=== PATIENT | female | born 1935 | race Caucasian/White ===

== ENCOUNTER 2018-04-10 03:20 | Observation (INO) | payer OTHER ==
[2018-04-10] MEDS ORDERED: LABETALOL 20 MG/4ML SYRINGE IV ONE (03:39)
[2018-04-10 03:53] LABS: Absolute Lymphocytes (CBC) 2.5 K/uL (0.7-4.9); Absolute Monocytes 1.1 K/uL (0.1-1.3); Absolute Neutrophil 13.9 K/uL (1.8-8.0); Basophils % 0.2 % (0-1.3); Hematocrit 41.8 % (36.0-45.0); MCH 29.8 pg (27.0-35.0); MCV 90.2 fL (80-100); Monocytes % 6.1 % (3.3-12.3); RBC Red Blood Cell Count 4.63 M/uL (3.86-4.86)
[2018-04-10 04:00] LABS: Protime INR 0.97
[2018-04-10 04:21] LABS: Albumin 3.6 g/dL (3.4-5.0); Bilirubin Direct 0.1 mg/dL (0-0.2); Bilirubin Total 0.3 mg/dL (0.2-1.0); Digoxin Level 0.5 ng/mL (0.80-2.00); Magnesium 2.1 mg/dL (1.8-2.4); Thyroid Stimulating Hormone 3.1 uIU/mL (0.36-3.74)
[2018-04-10] MEDS ORDERED: ALBUTEROL 2.5 MG/3 ML NEB SOL ONE (04:41)
--- NOTE | 2018-04-10 05:25 | ER ---
Nurse's Notes [facility] Name: Nora Ames Age: 82 yrs Sex: Female : 1935 Arrival Date: 04/10/2018 Time: 03:27 Bed 5 Private MD: Diagnosis: Precordial pain;Unspecified atrial flutter Presentation: 04/10 03:22 Presenting complaint: Patient states: Pt states that she was sitting reading a book, fc then started to have a headache. It went down into her neck then to her chest. Denies any nausea, vomiting or shortness of breath. Transition of care: patient was not received from another setting of care. Onset of symptoms was April 09, 2018 at 23:00. Risk Assessment: Do you want to hurt yourself or someone else? Patient reports no desire to harm self or others. Initial Sepsis Screen: Does the patient meet any 2 criteria? HR > 90 bpm. Yes Does the patient have a suspected source of infection? No. Patient's initial sepsis screen is negative. Care prior to arrival: Medication(s) given: ASA, 81 mg, x 4. 03:22 Acuity: ALDO 3 fc 03:22 Method Of Arrival: EMS: [facility] Historical: - Allergies: 03:35 Sulfa (Sulfonamide Antibiotics); fc - Home Meds: 03:40 digoxin 125 mcg oral tab 1 tab once daily [Active]; Protonix 40 mg Oral grps 1 packet fc once daily [Active]; metoprolol tartrate 25 mg Oral tab 1 tab am and noon [Active]; aspirin 81 mg Oral TbEC 1 tab once daily [Active]; simvastatin 20 mg Oral tab 1 tab nightly [Active]; montelukast 10 mg oral tab 1 tab nightly [Active]; Spiriva Respimat 1.25 mcg/actuation inhalation mist nightly [Active]; ProAir HFA 90 mcg/actuation inhalation HFAA 2 puffs as needed [Active]; - PMHx: 03:35 Asthma; CAD; Atrial Fib; Cancer, Breast; [employer]; Hypertension; fc 03:40 High Cholesterol; GERD; fc - PSHx: 03:35 left mastectomy; Appendectomy; Tonsillectomy; Hysterectomy; Lumpectomy; bladder lift; fc - Immunization history:: Last tetanus immunization: unknown. - Social history:: Smoking status: Patient/guardian denies using tobacco. - Ebola Screening: : Patient negative for fever greater than or equal to 101.5 degrees Fahrenheit, and additional compatible Ebola Virus Disease symptoms Patient denies exposure to infectious person Patient denies travel to an Ebola-affected area in the 21 days before illness onset. Screenin:22 Abuse screen: Denies threats or abuse. Nutritional screening: No deficits noted. fc Tuberculosis screening: No symptoms or risk factors identified. Fall Risk None identified. Assessment: 03:30 General: Appears in no apparent distress. Behavior is appropriate for age. Pain: lp1 Complains of pain in chest Pain does not radiate. Pain currently is 6 out of 10 on a pain scale. Pain began gradually, Is intermittent. Neuro: Level of Consciousness is awake, alert, obeys commands, Oriented to person, place, time, situation. Cardiovascular: Reports chest pain, palpitations, Patient's skin is warm and dry. Rhythm is sinus tachycardia. Respiratory: Respiratory effort is even, unlabored, Breath sounds are clear bilaterally. GI: No signs and/or symptoms were reported involving the gastrointestinal system. : No signs and/or symptoms were reported regarding the genitourinary system. EENT: No signs and/or symptoms were reported regarding the EENT system. Derm: Skin is fragile, is thin, Skin is dry, Skin is normal. Musculoskeletal: Circulation, motion, and sensation intact. 04:23 Reassessment: Patient appears in no apparent distress at this time. Patient and/or tl2 family updated on plan of care and expected duration. Pain level reassessed. Patient is alert, oriented x 3, equal unlabored respirations, skin warm/dry/pink. 05:30 Reassessment: Patient appears in no apparent distress at this time. Patient is alert, lp1 oriented x 3, equal unlabored respirations, skin warm/dry/pink. Aware of pending admission. 07:20 Reassessment: spoke with 4th floor, awaiting a call back from Narda WILLS at this time. Vital Signs: 03:22 BP 177 / 103; Pulse 128; Resp 20; Temp 98.5(O); Pulse Ox 95% on R/A; Weight 57.61 kg fc (R); Height 5 ft. 3 in. (160.02 cm) (R); Pain 2/10; 03:30 BP 154 / 95; Pulse 130; Resp 13; Pulse Ox 98% on R/A; lp1 04:00 BP 143 / 83; Pulse 126; Resp 19; Pulse Ox 95% on R/A; lp1 04:23 BP 141 / 76; Pulse 129; Resp 20; Pulse Ox 95% on R/A; tl2 05:04 BP 151 / 82; Pulse 135; Resp 21; Pulse Ox 99% on Nebulizer Mask; tl2 06:00 BP 132 / 67; Pulse 133; Resp 18; Pulse Ox 96% on R/A; lp1 06:20 BP 144 / 75; Pulse 136; Resp 20; Pulse Ox 95% on R/A; lp1 07:00 BP 131 / 69; Pulse 131; Resp 24; Pulse Ox 96% on R/A; sg 07:27 BP 129 / 65; Pulse 132 MON; Resp 18 S; Pulse Ox 98% on R/A; sg 03:22 Body Mass Index 22.50 (57.61 kg, 160.02 cm) fc ED Course: 03:22 Arm band placed on Patient placed in an exam room, on a stretcher. fc 03:22 Patient has correct armband on for positive identification. Placed in gown. Bed in low fc position. Call light in reach. Side rails up X2. child monitor on. Pulse ox on. NIBP on. 03:27 Patient arrived in ED. fc 03:28 Maintain EMS IV. Dressing intact. Good blood return noted. Site clean \T\ dry. Gauge \T\ tl 2 site: 20 g R AC. 03:29 Sam Lee MD is Attending Physician. gs 03:32 Triage completed. fc 03:41 X-ray completed. Portable x-ray completed in exam room. Patient tolerated procedure kp1 well. 03:42 Zoila Hernandez, ELMA is Primary Nurse. lp1 03:45 Patient maintains SpO2 saturation greater than 95% on room air. lp1 03:46 XRAY Chest (1 view) In Process Unspecified. EDMS 04:[address] via wheelchair. lp1 04:46 CT completed. Patient tolerated procedure well. Patient moved back from CT. kw1 04:56 CT Chest Wo Con In Process Unspecified. EDMS 05:23 Randee Brewer MD is Hospitalizing Provider. gs 06:[address] via wheelchair. kw1 06:18 No provider procedures requiring assistance completed. Patient admitted, IV remains in lp1 place. 06:19 CT completed. Patient tolerated procedure well. Patient moved back from CT. kw1 07:05 Primary Nurse role handed off by Zoila Hernandez, ELMA 07:05 Harlan Girard, RN is Primary Nurse. sg Administered Medications: 03:42 Drug: Labetalol 10 mg Route: IVP; Infused Over: 2 mins; Site: right antecubital; lp1 04:33 Follow up: Response: Blood pressure is lowered lp1 05:06 Drug: Albuterol 2.5 mg Route: Inhalation; tl2 05:30 Drug: Digoxin 0.25 mg Route: IVP; Site: right antecubital; tl2 06:52 Follow up: Response: No adverse reaction lp1 07:50 Drug: Metoprolol 25 mg Route: PO; sg Outcome: 05:24 Decision to Hospitalize by Provider. 06:18 Condition: stable lp1 06:18 Instructed on the need for admit. 08:38 Patient left the ED. hb Signatures: Dispatcher [employer] EDMS Harlan Girard, ELMA WILLS Yesy Weiss RN ELMA Zoila Hernandez RN RN 1 Nai Murillo RN RN Luciana Rosenberg RN RN 2 Radhika Rowe 1 Sam Lee MD MD Shanta Payan kw1 Corrections: (The following items were deleted from the chart) 03:40 03:35 Home Meds: Digoxin Oral once daily; [facility] 03:40 03:35 Home Meds: Spiriva with HandiHaler 18 mcg inhalation CpDv 1 cap once daily; [facility] 04:08 04:00 BP 143 / 83; Pulse 130bpm; Resp 19bpm; Pulse Ox 95% RA; lp1 lp1
[2018-04-10] MEDS ORDERED: DIGOXIN 0.25 MG/ML AMP ONE (05:31)
--- NOTE | 2018-04-10 05:51 | P.HP ---
Certification for Inpatient Patient admitted to: Observation With expected LOS: <2 Midnights Practitioner: I am a practitioner with admitting privileges, knowledge of patient current condition, hospital course, and medical plan of care. Services: Services provided to patient in accordance with Admission requirements found in Title 42 Section 412.3 of the Code of Federal Regulations Patient History Date of Service: 04/10/18 Reason for admission: chest pain History of Present Illness: Ms Ames is a 89-year-old woman with history of hypertension, atrial fibrillation, asthma, GERD, who recently moved from [place]. She states that before go to sleep last night, while she was reading a book, started feeling suddenly severe headache. Then, her pain radiated to the neck and finally to the chest. She described a tightness sensation in her chest, having trouble breathing, it was hard to inhale but not to exhale. Intensity 5/10. She denied any nausea, vomiting, fever, chills or dizziness. She took her blood pressure at home, it was 130s/70s. Lab work remarkable for leukocytosis, 17.6 K. She denied cough or dysuria. EKG remarkable for atrial flutter at 140s BPM, formal interpretation are cut and print machine operator is pending. Troponin I is negative. Allergies Sulfa (Sulfonamide Antibiotics) Allergy (Verified 04/10/18 05:44) Itching/Hives/Rash Home medications list reviewed: Yes - Past Medical/Surgical History -: Atrial fibrillation -: Hypertension -: Asthma -: Breast cancer -: Dyslipidemia -: GERD -: Mastectomy -: Tonsillectomy -: Appendectomy -: Hysterectomy -: Lumpectomy -: Bladder Lift - Family History Family History: Reviewed- Non-Contributory - Social History Smoking Status: Former smoker Alcohol use: No CD- Drugs: No Place of Residence: Home Review of Systems 10-point ROS is otherwise unremarkable Physical Examination - Physical Exam General: Alert, In no apparent distress HEENT: Atraumatic, PERRLA, Mucous membr. moist/pink, EOMI, Sclerae nonicteric Neck: Supple, 2+ carotid pulse no bruit, No LAD, Without JVD or thyroid abnormality Respiratory: Normal air movement, Crackles/rales (My bibasilar rales) Cardiovascular: Regular rate/rhythm, Normal S1 S2 Gastrointestinal: Normal bowel sounds, No tenderness Musculoskeletal: No tenderness Integumentary: No rashes Neurological: Normal speech, Normal strength at 5/5 x4 extr, Normal tone, Normal affect Lymphatics: No axilla or inguinal lymphadenopathy - Studies Laboratory Data (last 24 hrs) 04/10/18 03:35: PT 11.4, INR 0.97 04/10/18 03:35: WBC 17.6 H, Hgb 13.8, Hct 41.8, Plt Count 236 04/10/18 03:35: Sodium 139, Potassium 4.0, BUN 9, Creatinine 0.90, Glucose 101, Magnesium 2.1, Total Bilirubin 0.3, AST 18, ALT 21, Alkaline Phosphatase 83 Assessment and Plan - Problems (Diagnosis) (1) Headache Current Visit: Yes Status: Acute Qualifiers: Headache type: unspecified Headache chronicity pattern: acute headache Intractability: not intractable Qualified Code(s): R51 - Headache (2) Chest pain Current Visit: Yes Status: Acute Qualifiers: Chest pain type: precordial pain Qualified Code(s): R07.2 - Precordial pain (3) Atrial flutter Current Visit: Yes Status: Acute Qualifiers: Atrial flutter type: typical Qualified Code(s): I48.3 - Typical atrial flutter (4) Hypertension Current Visit: Yes Status: Acute Qualifiers: Hypertension type: essential hypertension Qualified Code(s): I10 - Essential (primary) hypertension (5) Asthma Current Visit: Yes Status: Acute Qualifiers: Asthma severity: mild Asthma persistence: intermittent Asthma complication type: uncomplicated Qualified Code(s): J45.20 - Mild intermittent asthma, uncomplicated (6) Dyslipidemia Current Visit: Yes Status: Acute - Plan The patient will be admitted to the hospital due to chest pain, in context of atrial flutter with RVR without ST-T abnormalities. Initial troponin I is negative, would continue with serial cardiac enzyme monitoring, and EKG. Will order an echocardiogram, consult cut and print machine operator. Will order IV Lasix since she has mild bibasilar rales at physical exam. Digoxin level was low. Will resume metoprolol, aspirin and simvastatin. She is not on any anticoagulation, she is states that bleed very ease, however, needs to be addressed before discharge home. Headache is improving, pending CT of the head. She has leukocytosis without obvious source of infection, no fever, pending UA. - Advance Directives Does patient have a Living Will: No Does patient have a Durable POA for Healthcare: No - Code Status/Comfort Care Code Status Assessed: Yes Code Status: Full Code
--- NOTE | 2018-04-10 06:09 | EKG ---
Test Date: 2018-04-10 Test Time: 03:23:25 [place] [employer] Quality Control Technician: SILVIA MEASUREMENT RESULTS: Intervals: Rate: 125 MN: 224 QRSD: 74 QT: 318 QTc: 458 [place]: P: MN: 224 QRS: 7 T: 19 INTERPRETIVE STATEMENTS: Sinus tachycardia with 1st degree AV block Otherwise normal ECG No previous ECG available for comparison Electronically Signed On 04-10-18 06:08:43 CDT by Darryl Bradshaw
--- NOTE | 2018-04-10 07:20 | RAD REPORT ---
EXAM DESCRIPTION: CT - Head Brain Wo Cont - 04/10/2018 7:05 am CLINICAL HISTORY: Severe headache A preliminary written report was provided at the time of the study, and the report was reviewed prio r to final dictation. COMPARISON: None. TECHNIQUE: Axial 5 mm thick images of the head were obtained without IV contrast. All CT scans are performed using dose optimization technique as appropriate and may include automated exposure control or mA/KV adjustment according to patient size. FINDINGS: No intracranial hemorrhage, mass, edema or shift of mid-line structures. No acute infarcti on changes seen. No abnormal extra-axial fluid collections. Mild atrophy and chronic ischemic changes are present. Ventricular size is in proportion. Mastoid air cells and visualized portions of the paranasal sinuses are clear. No acute bony findings. IMPRESSION: Negative non-contrast CT head examination for acute finding. Mild atrophy and chronic ischemic changes are present. Ventricular size is in proportion.
[2018-04-10] MEDS ORDERED: METOPROLOL TAR 25 MG TAB ONE (07:49)
--- NOTE | 2018-04-10 08:31 | P.PN ---
Subjective Date of Service: 04/10/18 Primary Care Provider: Recently moved from [place] Chief Complaint: chest pain Subjective: Improving (Patient feels better. Somewhat tired.) Physical Examination - Physical Exam General: Alert, In no apparent distress, Oriented x3, Cooperative HEENT: Atraumatic Neck: Supple Respiratory: Clear to auscultation bilaterally, Normal air movement Cardiovascular: Irregular heart rate/rhythm (Sinus tachycardia, rate around 120- 130) Gastrointestinal: Normal bowel sounds, Soft and benign, Non-distended, No tenderness, No masses, No rebound, No guarding Musculoskeletal: No erythema, No tenderness, No warmth Integumentary: No tenderness/swelling, No erythema, No warmth, No cyanosis Neurological: Normal speech, Normal strength at 5/5 x4 extr, Normal tone, Normal affect - Studies Laboratory Data (last 24 hrs) 04/10/18 03:35: PT 11.4, INR 0.97 04/10/18 03:35: WBC 17.6 H, Hgb 13.8, Hct 41.8, Plt Count 236 04/10/18 03:35: Sodium 139, Potassium 4.0, BUN 9, Creatinine 0.90, Glucose 101, Magnesium 2.1, Total Bilirubin 0.3, AST 18, ALT 21, Alkaline Phosphatase 83 Medications List Reviewed: Yes Assessment & Plan - Problems (Diagnosis) (1) Asthma Current Visit: Yes Status: Chronic Plan: Patient with history of asthma. Will start Brovana. Will provide medication as needed for shortness of breath. Patient is new to the area. She will need to establish care with pulmonology in the area as an outpatient. Qualifiers: Asthma severity: mild Asthma persistence: intermittent Asthma complication type: uncomplicated Qualified Code(s): J45.20 - Mild intermittent asthma, uncomplicated (2) Atrial flutter Current Visit: Yes Status: Acute Plan: Patient presented with atrial flutter rate in the 150s. Patient appears to be in sinus tachycardia at this time with a rate around 120-130. Digoxin level was low. Will continue with her metoprolol and digoxin. Echocardiogram ordered. Await further recommendations from cardiology. Will start Lovenox at 1 milligram/kilogram subcu twice daily. Patient may require adjustment in her medication. Will continue monitor on telemetry. Qualifiers: Atrial flutter type: typical Qualified Code(s): I48.3 - Typical atrial flutter (3) Chest pain Current Visit: Yes Status: Acute Plan: Initial cardiac enzymes unremarkable. Will continue with echocardiogram. Patient may require cardiac evaluation. Cardiology consulted. Qualifiers: Chest pain type: precordial pain Qualified Code(s): R07.2 - Precordial pain (4) Dyslipidemia Current Visit: Yes Status: Chronic Plan: Will check fasting lipid panel, will continue with her medication. (5) Headache Current Visit: Yes Status: Acute Plan: Likely from atrial flutter. This has improved. Continue with blood pressure medication. Qualifiers: Headache type: unspecified Headache chronicity pattern: acute headache Intractability: not intractable Qualified Code(s): R51 - Headache (6) Hypertension Current Visit: Yes Status: Chronic Plan: Will continue with her medication. Medication may need adjustment. Await cardiology evaluation. Qualifiers: Hypertension type: essential hypertension Qualified Code(s): I10 - Essential (primary) hypertension Discharge Plan: Home Plan to discharge in: 48 Hours Time Spent Managing Pts Care (In Minutes): 55
--- NOTE | 2018-04-10 08:39 | EDPHYS ---
Physician Documentation [facility] Name: Nora Ames Age: 82 yrs Sex: Female : 1935 Arrival Date: 04/10/2018 Time: 03:27 Bed 5 Private MD: ED Physician Sam Lee HPI: 04/10 05:18 This 82 yrs old Female presents to ER via EMS with complaints of Chest Pain. 05:18 The patient or guardian reports chest pain that is located primarily in the anterior gs chest wall. Onset: 1 hour(s) ago. The pain radiates to neck. Associated signs and symptoms: Pertinent positives: palpitations, shortness of breath. The chest pain is described as a heaviness, sharp. Duration: The patient or guardian reports a single episode, that is now resolved. Modifying factors: The symptoms are alleviated by nothing. the symptoms are aggravated by nothing. Severity of pain: At its worst the pain was severe in the emergency department the pain has resolved. The patient has experienced similar episodes in the past, a few times. Historical: - Allergies: 03:35 Sulfa (Sulfonamide Antibiotics); fc - Home Meds: 03:40 digoxin 125 mcg oral tab 1 tab once daily [Active]; Protonix 40 mg Oral grps 1 packet fc once daily [Active]; metoprolol tartrate 25 mg Oral tab 1 tab am and noon [Active]; aspirin 81 mg Oral TbEC 1 tab once daily [Active]; simvastatin 20 mg Oral tab 1 tab nightly [Active]; montelukast 10 mg oral tab 1 tab nightly [Active]; Spiriva Respimat 1.25 mcg/actuation inhalation mist nightly [Active]; ProAir HFA 90 mcg/actuation inhalation HFAA 2 puffs as needed [Active]; - PMHx: 03:35 Asthma; CAD; Atrial Fib; Cancer, Breast; [place]; Hypertension; fc 03:40 High Cholesterol; GERD; fc - PSHx: 03:35 left mastectomy; Appendectomy; Tonsillectomy; Hysterectomy; Lumpectomy; bladder lift; fc - Immunization history:: Last tetanus immunization: unknown. - Social history:: Smoking status: Patient/guardian denies using tobacco. - Ebola Screening: : Patient negative for fever greater than or equal to 101.5 degrees Fahrenheit, and additional compatible Ebola Virus Disease symptoms Patient denies exposure to infectious person Patient denies travel to an Ebola-affected area in the 21 days before illness onset. ROS: 05:18 All other systems are negative. gs Exam: 05:18 Head/Face: Normocephalic, atraumatic. Eyes: Pupils equal round and reactive to light, gs extra-ocular motions intact. Lids and lashes normal. Conjunctiva and sclera are non-icteric and not injected. Cornea within normal limits. Periorbital areas with no swelling, redness, or edema. ENT: Nares patent. No nasal discharge, no septal abnormalities noted. Tympanic membranes are normal and external auditory canals are clear. Oropharynx with no redness, swelling, or masses, exudates, or evidence of obstruction, uvula midline. Mucous membranes moist. Neck: Trachea midline, no thyromegaly or masses palpated, and no cervical lymphadenopathy. Supple, full range of motion without nuchal rigidity, or vertebral point tenderness. No Meningismus. Chest/axilla: Normal chest wall appearance and motion. Nontender with no deformity. No lesions are appreciated. 05:18 Abdomen/GI: Soft, non-tender, with normal bowel sounds. No distension or tympany. No guarding or rebound. No evidence of tenderness throughout. Back: No spinal tenderness. No costovertebral tenderness. Full range of motion. Skin: Warm, dry with normal turgor. Normal color with no rashes, no lesions, and no evidence of cellulitis. MS/ Extremity: Pulses equal, no cyanosis. Neurovascular intact. Full, normal range of motion. Neuro: Awake and alert, GCS 15, oriented to person, place, time, and situation. Cranial nerves II-XII grossly intact. Motor strength 5/5 in all extremities. Sensory grossly intact. Cerebellar exam normal. Normal gait. 05:18 Constitutional: The patient appears alert, awake, in obvious distress, severely distressed. 05:18 Cardiovascular: Rate: tachycardic, Rhythm: regular, Pulses: no pulse deficits are appreciated, Heart sounds: murmur, not appreciated, Edema: is not appreciated. 05:18 ECG was reviewed by the Attending Physician. 05:18 Respiratory: the patient does not display signs of respiratory distress, Respirations: tachypnea, Breath sounds: rales, that are moderate, are located in both bases. Vital Signs: 03:22 BP 177 / 103; Pulse 128; Resp 20; Temp 98.5(O); Pulse Ox 95% on R/A; Weight 57.61 kg fc (R); Height 5 ft. 3 in. (160.02 cm) (R); Pain 2/10; 03:30 BP 154 / 95; Pulse 130; Resp 13; Pulse Ox 98% on R/A; lp1 04:00 BP 143 / 83; Pulse 126; Resp 19; Pulse Ox 95% on R/A; lp1 04:23 BP 141 / 76; Pulse 129; Resp 20; Pulse Ox 95% on R/A; tl2 05:04 BP 151 / 82; Pulse 135; Resp 21; Pulse Ox 99% on Nebulizer Mask; tl2 06:00 BP 132 / 67; Pulse 133; Resp 18; Pulse Ox 96% on R/A; lp1 06:20 BP 144 / 75; Pulse 136; Resp 20; Pulse Ox 95% on R/A; lp1 07:00 BP 131 / 69; Pulse 131; Resp 24; Pulse Ox 96% on R/A; sg 07:27 BP 129 / 65; Pulse 132 MON; Resp 18 S; Pulse Ox 98% on R/A; sg 03:22 Body Mass Index 22.50 (57.61 kg, 160.02 cm) MDM: 03:29 Patient medically screened. 05:18 Differential diagnosis: acute myocardial infarction, congestive heart failure gs pneumonia, pulmonary embolus. Data reviewed: vital signs, nurses notes. 04/10 03:30 Order name: Basic Metabolic Panel; Complete Time: 04:27 04/10 03:30 Order name: CBC with Diff; Complete Time: 04:27 04/10 03:30 Order name: LFT's; Complete Time: 04:27 04/10 03:30 Order name: Magnesium; Complete Time: 04:27 04/10 03:30 Order name: NT PRO-BNP; Complete Time: 04:27 04/10 03:30 Order name: PT-INR; Complete Time: 04:27 04/10 03:30 Order name: Troponin (emerg Dept Use Only); Complete Time: 04:27 04/10 03:30 Order name: XRAY Chest (1 view) 04/10 03:30 Order name: Digoxin; Complete Time: 04:27 04/10 03:30 Order name: TSH; Complete Time: 04:27 04/10 03:30 Order name: D-Dimer; Complete Time: 04:27 04/10 04:28 Order name: CT Chest Wo Con 04/10 05:16 Order name: Urinalysis EDUT 04/10 07:32 Order name: Procalcitonin EDMS 04/10 03:30 Order name: EKG; Complete Time: 03:31 04/10 03:30 Order name: Cardiac monitoring; Complete Time: 03:38 04/10 03:30 Order name: EKG - Nurse/Tech; Complete Time: 03:39 04/10 03:30 Order name: IV Saline Lock; Complete Time: 03:38 04/10 03:30 Order name: Labs collected and sent; Complete Time: 03:38 04/10 03:30 Order name: O2 Per Protocol; Complete Time: 03:38 04/10 03:30 Order name: O2 Sat Monitoring; Complete Time: 03:38 04/10 03:30 Order name: Urine Dipstick-Ancillary (obtain specimen); Complete Time: 05:02 04/10 05:06 Order name: EKG - Nurse/Tech; Complete Time: 05:06 tl2 04/10 05:46 Order name: Head Brain Wo Cont EDUT 04/10 05:48 Order name: CONS Physician Consult EDMS EC:18 Rate is 125 beats/min. Rhythm is regular, A flutter. FL interval is prolonged. QRS gs interval is normal. QT interval is normal. No ST changes noted. Clinical impression: Atrial Flutter. Interpreted by me. Administered Medications: 03:42 Drug: Labetalol 10 mg Route: IVP; Infused Over: 2 mins; Site: right antecubital; lp1 04:33 Follow up: Response: Blood pressure is lowered lp1 05:06 Drug: Albuterol 2.5 mg Route: Inhalation; tl2 05:30 Drug: Digoxin 0.25 mg Route: IVP; Site: right antecubital; tl2 06:52 Follow up: Response: No adverse reaction lp1 07:50 Drug: Metoprolol 25 mg Route: PO; sg Disposition: 05:18 Critical Care:. Disposition: 04/10/18 05:24 Hospitalization ordered by Randee Brewer for Inpatient Admission. Preliminary diagnosis are Precordial pain, Unspecified atrial flutter. - Bed requested for Telemetry/MedSurg (Inpatient). - Status is Inpatient Admission. hb - Condition is Stable. - Problem is new. - Symptoms have improved. UTI on Admission? No Critical care time excluding procedures: 05:18 Critical care time: Bedside Care: 10 minutes, Consultation: 10 minutes, Family Intervention: 10 minutes. Total time: 30 minutes Signatures: Dispatcher [employer] EDMS Shanta Bryant, RN RN Harlan Girard RN RN Yesy Weiss, RN RN Zoila Hernandez, RN RN lp1 Nai Murillo RN ELMA Luciana Rosenberg RN RN 2 Sam Lee MD MD Corrections: (The following items were deleted from the chart) 03:40 03:35 Home Meds: Digoxin Oral once daily; [facility] 03:40 03:35 Home Meds: Spiriva with HandiHaler 18 mcg inhalation CpDv 1 cap once daily; [facility] 06:02 05:24 Hospitalization Ordered by Randee Brewer MD for Inpatient Admission. Preliminary diagnosis is Precordial pain; Unspecified atrial flutter. Bed requested for Telemetry/MedSurg (Inpatient). Status is Inpatient Admission. Condition is Stable. Problem is new. Symptoms have improved. UTI on Admission? No. gs 08:38 06:02 04/10/2018 05:24 Hospitalization Ordered by Randee Brewer MD for Inpatient hb Admission. Preliminary diagnosis is Precordial pain; Unspecified atrial flutter. Bed requested for Telemetry/MedSurg (Inpatient). Status is Inpatient Admission. Condition is Stable. Problem is new. Symptoms have improved. UTI on Admission? No. kl
--- NOTE | 2018-04-10 08:48 | RAD REPORT ---
EXAM DESCRIPTION: RAD - Chest Single View - 04/10/2018 3:47 am CLINICAL HISTORY: Chest pain COMPARISON: None. TECHNIQUE: AP portable chest image was obtained 0331 hours . FINDINGS: No large consolidation or mass. There is a 12 millimeter nodule left hilar region. Interst itial markings are prominent overall. Baseline for the patient is unknown. Interstitial edema or infi ltrate cannot be excluded. Heart size is upper normal. Vasculature within normal limits. Significant failure or volume overload are doubtful. No measurable pleural effusion and no pneumothorax. No acute bony abnormality seen. Degenerative or old trauma changes noted to the left humeral head. No acute a ortic findings suspected. IMPRESSION: Prominent interstitial markings with unknown baseline. Chronic interstitial lung disease, interstitial edema and infiltrate can all have a similar pattern o n a baseline exam. Left perihilar lung nodule. Follow-up CT chest imaging is recommended.
--- NOTE | 2018-04-10 09:08 | RAD REPORT ---
EXAM DESCRIPTION: CT - Thorax Wo Con - 04/10/2018 7:07 am CLINICAL HISTORY: Chest pain, shortness of breath, prior history of left mastectomy for carcinoma. A preliminary written report was provided at the time of the study, and the report was reviewed prio r to final dictation. COMPARISON: Chest films same date TECHNIQUE: Axial 5 mm thick images of the chest were obtained without IV contrast. All CT scans are performed using dose optimization technique as appropriate and may include automated exposure control or mA/KV adjustment according to patient size. FINDINGS: A 14 x 12 mm oval noncalcified smooth nodule (image 26/63) is present in the perihilar lef t midlung field. This left lower lobe nodule is the correlate to the chest film abnormality. In the a nterior right base a right lower lobe spiculated density is present measuring 11 x 10 mm (image 40/63 ). No other focal nodular density seen. There is juxtapleural parenchymal scarring in the anterior up per left chest and in the lateral apex. This type of opacification is typical for scarring within the radiation field. There is slightly irregular left anterior chest wall musculature between the third and fourth ribs. There are coarse calcifications in the deep subcutaneous fat near the chest wall. Th is could be change related to post therapy scarring as well as scarring related to Port-A-Cath remova l. Left breast fatty tissue may represent either a subtotal mastectomy or any postmastectomy reconstr uction. No pneumothorax or pleural effusion. Overall interstitial markings are prominent. Scarring changes are present. There could be an addition al mild interstitial edema or infiltrate pattern. No remote comparison is available. No abnormal mediastinal or hilar masses or lymphadenopathy seen. No gross aortic or pulmonary artery finding suspected. Assessment is limited in the absence of IV contrast. No abnormal axillary lymphadenopathy. Postsurgical clips are present in the left axilla. Few small no nspecific lymph nodes are present. The posterior left axilla lymph node 9 mm in size (image 29/63) is borderline abnormal. Limited upper abdomen imaging shows incidental 4 mm gallstone. IMPRESSION: A smooth 14 millimeter noncalcified nodule left lower lobe and spiculated 11 millimeter nodule right lower lobe are present. Both could represent either metastatic or primary malignancy. Left anterior juxtapleural opacification and left anterior chest wall changes are likely related to p ost radiation change. If no outside comparison imaging is available, PET-CT imaging could be performed to evaluate activity of both lung nodules and to exclude abnormal activity for the anterior left chest wall findings. Based on size and location of the right base finding and deep central location of the left nodule, ne ither nodule would likely be amenable to percutaneous tissue sampling at this facility.
[2018-04-10] MEDS ORDERED: ONDANSETRON 4 MG/2 ML VIAL IV PRN (09:20)
[2018-04-10] MEDS ORDERED: ACETAMINOPHEN 500 MG TAB PO PRN (09:20)
[2018-04-10] MEDS ORDERED: IPRATROPIUM BROM 0.5MG/2.5ML NEB PRN (09:20)
[2018-04-10] MEDS ORDERED: METOPROLOL TAR 25 MG TAB PO SCH (10:00)
[2018-04-10] MEDS: ASPIRIN EC 81 MG TAB PO SCH (10:57)
[2018-04-10] MEDS: ENOXAPARIN 60 MG/0.6 ML SQ SCH ×2 (10:58→21:11)
[2018-04-10] MEDS ORDERED: SOTALOL HCL 80 MG TAB PO ONE (12:00)
--- NOTE | 2018-04-10 12:37 | CON ---
History Of Present Illness: Ms. Ames is 82. She came to the hospital with headache and later with chest pain. She was found to have what was initially thought to be sinus tach, but in retrospect it is probably atrial flutter with heart rates 120. I do not see clear flutter waves, so it is not typ ical type of aflutter and can easily mask as sinus tachycardia, but she is still in it. She has had atrial fib in the past and was given digoxin to take. She was not given anticoagulant drug. Karishma carballo her outpatient medications have been labetalol, digoxin, metoprolol and albuterol. The combinati on of drugs that seems a little bit odd for several reasons. I wonder if that is really what her doc tor has prescribed. The patient's other care had been at a small town in [place]. She has moved to leave here now. She reports an allergy to sulfa drugs. Denies any tobacco use. No history of my ocardial infarction, stroke, heart surgery, stents, ablations, pacemakers. No history of diabetes. She has longstanding hypertension. Physical Examination: General: She is 5 feet 3 inches, 127 pounds. HEENT: Unremarkable. Heart: Rate 120, perfectly regular. Cannot not see flutter waves. Vital signs: Blood pressure 139/76, O2 saturation 97%. Temperature 97.8. Extremities: Palpable distal pulses. No cyanosis, clubbing, or edema. Impression: The patient is in atrial flutter with 2:1 block and atypical atrial flutter with flutter waves would be at rate of about 240, low amplitude and difficult to see on a routine EKG. I will st op the labetalol, digoxin and metoprolol and I will give her heparin to take presently on IV heparin drip and we will start Betapace. We will see if we can revert her rhythm to normal using medications . If not, we can consider a cardioversion. The problem is that I do not really know how long she rios s been in atrial flutter. She does not really see it so it might be better to initiate the drug, slo w the heart rates some, get her on long-term anticoagulation and bring her back for cardioversion at a later date. We will do an echocardiogram and stress test tomorrow. ANA Voice ID: [id number] Report ID: [id number]
[2018-04-10 13:08] VITALS: BMI 22.5
[2018-04-10] MEDS: SOTALOL HCL 80 MG TAB PO SCH (17:34)
[2018-04-10] MEDS: ARFORMOTEROL TARTRATE 15 MCG/2 ML VIAL.NEB NEB SCH (19:45)
[2018-04-10] MEDS ORDERED: ATORVASTATIN 20 MG TAB PO SCH (21:00)
[2018-04-11 05:00] LABS: Absolute Monocytes 1.1 K/uL (0.1-1.3); Absolute Neutrophil 6.4 K/uL (1.8-8.0); Basophils % 0.5 % (0-1.3); Eosinophils % 0.7 % (0-4.4); Hematocrit 37.9 % (36.0-45.0); Lymphocytes % 27.8 % (15.3-44.8); MCH 30.5 pg (27.0-35.0); MCV 88.7 fL (80-100); MPV 9.2 fL (7.6-11.3); Monocytes % 10.4 % (3.3-12.3); RBC Red Blood Cell Count 4.28 M/uL (3.86-4.86)
[2018-04-11] MEDS: SOTALOL HCL 80 MG TAB PO SCH (05:13)
[2018-04-11 05:23] LABS: Potassium 3.8 mmol/L (3.5-5.1)
[2018-04-11 06:25] LABS: Urine Appearance CLEAR; Urine Color YELLOW; Urine Specific Gravity 1.025 (1.005-1.030)
[2018-04-11 06:26] LABS: Urine Bacteria <20 /HPF (<20); Urine Bilirubin NEGATIVE (NEG); Urine Blood TRACE (NEG); Urine Glucose NEGATIVE (NEG); Urine Microscopic Reflex ORDER UMIC; Urine Protein NEGATIVE (NEG); Urine Urobilinogen 0.2 mg/dL (0.2-1.0); Urine pH 5.5 (5.0-7.0)
[2018-04-11 06:27] LABS: Urine Culture Reflex Order REFLEXED
[2018-04-11] MEDS: PANTOPRAZOLE 40MG TABLET PO SCH ×2 (07:30→11:25)
[2018-04-11] MEDS ORDERED: REGADENOSON 0.4 MG/5 ML SYR IV ONE (07:52)
[2018-04-11 08:17] VITALS: BP 130/64; TEMP 97.7
[2018-04-11] MEDS: ARFORMOTEROL TARTRATE 15 MCG/2 ML VIAL.NEB NEB SCH (08:25)
--- NOTE | 2018-04-11 08:31 | EKG ---
Test Date: 2018-04-10 Test Time: 05:05:56 Business Dean: TRINA MEASUREMENT RESULTS: Intervals: Rate: 130 IN: 186 QRSD: 74 QT: 272 QTc: 400 Ridge: P: 38 IN: 186 QRS: 38 T: 55 INTERPRETIVE STATEMENTS: Sinus tachycardia Cannot rule out Anterior infarct, age undetermined Abnormal ECG Compared to ECG 04/10/2018 03:23:25 Myocardial infarct finding now present First degree AV block no longer present Electronically Signed On 04-11-18 08:30:50 CDT by Darryl Bradshaw
[2018-04-11] MEDS: ENOXAPARIN 60 MG/0.6 ML SQ SCH ×2 (09:00→11:25)
[2018-04-11] MEDS: ASPIRIN EC 81 MG TAB PO SCH ×2 (09:00→11:28)
--- NOTE | 2018-04-11 10:59 | RAD REPORT ---
EXAM DESCRIPTION: NM - Rest Stress Cardiac Imaging - 04/11/2018 10:43 am CLINICAL HISTORY: Chest pain. COMPARISON: None. TECHNIQUE: The patient was administered approximately 10mCi of Tc 99m Sestamibi prior to resting SPE CT imaging of the heart. The patient was then administered approximately 30 mCi of Tc 99m Sestamibi f ollowing exercise or pharmacologic stress. Multiplanar SPECT images were reviewed. FINDINGS: A small to moderate area of diminished radiotracer activity involves the anterior apical left ventricular myocardium on rest and stress images. The left ventricular ejection fraction equals 73% IMPRESSION: Small to moderate apparent fixed perfusion defect involving the anterior apical left elio tricular myocardium may be secondary to an infarct or attenuation from overlying soft tissue. There is no evidence of stress-induced ischemia
--- NOTE | 2018-04-11 11:07 | TREADPHA ---
DX: ATRIAL FLUTTER Date of Study: 04/11/2018 Ht: 5 3 Wt: 127 lb 0.133 oz Consulting Physician: EDWARD MEDICATIONS: TYLENOL, BROVANA, ASPIRIN, LIPITOR, LOVENOX, ZOFRAN HISTORY: 82 YEAR OLD FEMALE HERE FOR CHEST PAIN AND ATRIAL FLUTTER. HISTORY OF ASTHMA, CORNARY ARTERY DISEASE, ATRIAL FIBRILLATION, BREAST CANCER, HYPERTENSION, HIGH CHOLESTEROL, GERD AND [place]OSHONE-PAIUTE PHYSICIAL EXAMINATION: RESTING B.P.: 121/87 RESTING H.R.: 66 RESTING EKG: NORMAL PROTOCOL: LEXISCAN EXERCISE TIME: 3:30 B.P. AT PEAK STRESS: 126/74 IMPRESSION: LEXISCAN STRESS TEST PERFORMED. CARDIOLITE INJECTED PER PROTOCOL. PREMATURE VENTRICULAR COMPLEX NOTED DURING AND POST TEST. DENIES ANY CHEST PAIN. SEE NUCLEAR MEDICINE REPORT. NON-DIAGNOSTIC ELECTROCARDIOGRAM WITH LEXISCAN STRESS.
--- NOTE | 2018-04-11 11:11 | P.PN ---
Subjective Date of Service: 04/11/18 Primary Care Provider: Dr. Josue(Recently moved from [place]) Chief Complaint: chest pain Subjective: Doing well Physical Examination - Vital Signs Temperature: 97.7 F Blood Pressure: 130/64 Pulse: 64 Respirations: 18 Pulse Ox (%): 93 - Physical Exam General: Alert, In no apparent distress, Oriented x3, Cooperative HEENT: Atraumatic Neck: Supple Respiratory: Clear to auscultation bilaterally, Normal air movement Cardiovascular: Normal pulses, Regular rate/rhythm Gastrointestinal: Normal bowel sounds, Soft and benign, Non-distended, No tenderness, No masses, No rebound, No guarding Musculoskeletal: No erythema, No tenderness, No warmth Integumentary: No tenderness/swelling, No erythema, No warmth, No cyanosis Neurological: Normal speech, Normal strength at 5/5 x4 extr, Normal tone, Normal affect - Studies Medications List Reviewed: Yes Assessment & Plan - Problems (Diagnosis) (1) Asthma Onset Date: 04/11/18 Current Visit: Yes Status: Chronic Plan: Patient with history of asthma. Patient will need to continue with her medication at discharge. Patient should establish care with pulmonology as an outpatient. Patient presented with atrial flutter in the emergency room. Stress test showed no stress-induced ischemia. Echocardiogram pending. Patient started on Betapace for atrial fibrillation. Patient will lead chronic anti coagulation therapy. Patient now in normal sinus rhythm. Medications have been adjusted by Cardiology. Possible discharge later today if okay with cardiology. Qualifiers: Asthma severity: mild Asthma persistence: intermittent Asthma complication type: uncomplicated Qualified Code(s): J45.20 - Mild intermittent asthma, uncomplicated (2) Atrial flutter Onset Date: 04/11/18 Current Visit: Yes Status: Acute Plan: Patient now in normal sinus rhythm. Medications adjusted by Cardiology. Patient now on Betapace. Patient will need chronic anti coagulation therapy. Await echocardiogram. Stress test showed no stress-induced ischemia. Possible discharge later today if okay cardiology. Patient will require Betapace and chronic anti coagulation at discharge. Please note metoprolol and digoxin has been discontinued. Qualifiers: Atrial flutter type: typical Qualified Code(s): I48.3 - Typical atrial flutter (3) Chest pain Onset Date: 04/11/18 Current Visit: Yes Status: Acute Plan: Initial cardiac enzymes unremarkable. Cardiac stress test showed no stress- induced ischemia. Continue as above. Qualifiers: Chest pain type: precordial pain Qualified Code(s): R07.2 - Precordial pain (4) Dyslipidemia Onset Date: 04/11/18 Current Visit: Yes Status: Chronic Plan: Continue with medication. (5) Headache Onset Date: 04/11/18 Current Visit: Yes Status: Acute Plan: Likely from atrial flutter. This has improved. Medications adjusted Qualifiers: Headache type: unspecified Headache chronicity pattern: acute headache Intractability: not intractable Qualified Code(s): R51 - Headache (6) Hypertension Onset Date: 04/11/18 Current Visit: Yes Status: Chronic Plan: Medications adjusted by Cardiology. Patient now on Betapace. Qualifiers: Hypertension type: essential hypertension Qualified Code(s): I10 - Essential (primary) hypertension Discharge Plan: Home Plan to discharge in: 24 Hours Time Spent Managing Pts Care (In Minutes): 55
--- NOTE | 2018-04-11 11:45 | PN ---
Subjective: Ms. Ames went into a normal rhythm overnight. She is apparently feeling fine. She is actually down, being scanned for the first part of her nuclear stress test and echocardiogram will a lso be done today. I am thinking that long-term treatment with Betapace and Xarelto is our likely re commendation at the end of the day. DAVE/AMANDA Voice ID: [id number] Report ID: [id number]
--- NOTE | 2018-04-11 11:59 | P.DS ---
Admission Date: 04/10/18 Discharge Date: 04/11/18 Primary Care Provider: Dr. Josue(Recently moved from [place]) Disposition: ROUTINE DISCHARGE Discharge Condition: GOOD Reason for Admission: chest pain Consultations: Cardiology-Dr. Bradshaw Procedures: Echo cardiogram: Unremarkable Cardiac stress test: COMPARISON: None. TECHNIQUE: The patient was administered approximately 10mCi of Tc 99m Sestamibi prior to resting SPECT imaging of the heart. The patient was then administered approximately 30 mCi of Tc 99m Sestamibi following exercise or pharmacologic stress. Multiplanar SPECT images were reviewed. FINDINGS: A small to moderate area of diminished radiotracer activity involves the anterior apical left ventricular myocardium on rest and stress images. The left ventricular ejection fraction equals 73% IMPRESSION: Small to moderate apparent fixed perfusion defect involving the anterior apical left ventricular myocardium may be secondary to an infarct or attenuation from overlying soft tissue. There is no evidence of stress-induced ischemia CT head: No acute changes noted. CT chest: CLINICAL HISTORY: Chest pain, shortness of breath, prior history of left mastectomy for carcinoma. A preliminary written report was provided at the time of the study, and the report was reviewed prior to final dictation. COMPARISON: Chest films same date TECHNIQUE: Axial 5 mm thick images of the chest were obtained without IV contrast. All CT scans are performed using dose optimization technique as appropriate and may include automated exposure control or mA/KV adjustment according to patient size. FINDINGS: A 14 x 12 mm oval noncalcified smooth nodule (image 26/63) is present in the perihilar left midlung field. This left lower lobe nodule is the correlate to the chest film abnormality. In the anterior right base a right lower lobe spiculated density is present measuring 11 x 10 mm (image 40/63). No other focal nodular density seen. There is juxtapleural parenchymal scarring in the anterior upper left chest and in the lateral apex. This type of opacification is typical for scarring within the radiation field. There is slightly irregular left anterior chest wall musculature between the third and fourth ribs. There are coarse calcifications in the deep subcutaneous fat near the chest wall. This could be change related to post therapy scarring as well as scarring related to Port-A-Cath removal. Left breast fatty tissue may represent either a subtotal mastectomy or any postmastectomy reconstruction. No pneumothorax or pleural effusion. Overall interstitial markings are prominent. Scarring changes are present. There could be an additional mild interstitial edema or infiltrate pattern. No remote comparison is available. No abnormal mediastinal or hilar masses or lymphadenopathy seen. No gross aortic or pulmonary artery finding suspected. Assessment is limited in the absence of IV contrast. No abnormal axillary lymphadenopathy. Postsurgical clips are present in the left axilla. Few small nonspecific lymph nodes are present. The posterior left axilla lymph node 9 mm in size (image 29/63) is borderline abnormal. Limited upper abdomen imaging shows incidental 4 mm gallstone. IMPRESSION: A smooth 14 millimeter noncalcified nodule left lower lobe and spiculated 11 millimeter nodule right lower lobe are present. Both could represent either metastatic or primary malignancy. Left anterior juxtapleural opacification and left anterior chest wall changes are likely related to post radiation change. If no outside comparison imaging is available, PET-CT imaging could be performed to evaluate activity of both lung nodules and to exclude abnormal activity for the anterior left chest wall findings. Based on size and location of the right base finding and deep central location of the left nodule, neither nodule would likely be amenable to percutaneous tissue sampling at this facility. - Problems (1) Asthma Onset Date: 04/11/18 Current Visit: Yes Status: Chronic Qualifiers: Asthma severity: mild Asthma persistence: intermittent Asthma complication type: uncomplicated Qualified Code(s): J45.20 - Mild intermittent asthma, uncomplicated (2) Atrial flutter Onset Date: 04/11/18 Current Visit: Yes Status: Acute Qualifiers: Atrial flutter type: typical Qualified Code(s): I48.3 - Typical atrial flutter (3) Chest pain Onset Date: 04/11/18 Current Visit: Yes Status: Acute Qualifiers: Chest pain type: precordial pain Qualified Code(s): R07.2 - Precordial pain (4) Dyslipidemia Onset Date: 04/11/18 Current Visit: Yes Status: Chronic (5) Headache Onset Date: 04/11/18 Current Visit: Yes Status: Acute Qualifiers: Headache type: unspecified Headache chronicity pattern: acute headache Intractability: not intractable Qualified Code(s): R51 - Headache (6) Hypertension Onset Date: 04/11/18 Current Visit: Yes Status: Chronic Qualifiers: Hypertension type: essential hypertension Qualified Code(s): I10 - Essential (primary) hypertension (7) Chronic anticoagulation Current Visit: Yes Status: Acute (8) GERD (gastroesophageal reflux disease) Current Visit: Yes Status: Suspected Qualifiers: Esophagitis presence: esophagitis presence not specified Qualified Code(s) : K21.9 - Gastro-esophageal reflux disease without esophagitis (9) Abnormal CT scan, chest Current Visit: Yes Status: Acute (10) History of breast cancer Current Visit: Yes Status: Chronic Brief History of Present Illness: 82-year-old female presented emergency room with chest pain. Patient with history of breast cancer, hypertension. She is new to the area. Patient found to have atrial flutter. Patient was admitted for treatment. Hospital Course: During the course of her stay patient was seen and evaluated by Cardiology. Metoprolol and digoxin were discontinued. She was started on Betapace. Patient tolerated medication well. Patient converted into normal sinus rhythm. Patient also had echocardiogram which was unremarkable. Cardiac stress test showed no stress-induced ischemia. At discharge she will continue with Betapace 80 mg 1 pill twice daily. Patient will also continue with chronic anti coagulation therapy-Eliquis. Because of her age being greater than 80 years of age and her weight less than 60 kg, the patient will start Eliquis at 2.5 mg 1 pill twice daily. At discharge she will continue with Eliquis 2.5 mg 1 pill twice daily. Education on Eliquis and Betapace will be provided. Recommendations for the patient follow up with cardiology in 1 week to follow up this hospitalization and continue her care. Patient has hypertension. Metoprolol has been discontinued. She will continue with above medications as recommended. Patient has a history of breast cancer. Recommendation is for the patient to establish care locally with oncology to follow up. CT scan did show a smooth 14 mm noncalcified nodule to the left lower lobe and a spiculated 11 mm nodule in the right lower lobe. Both can represent either metastatic or primary cancer. Recommendation is for the patient to have a PET-CT scan as an outpatient to further assess. Based on size and location of the right based finding and the deep left nodule, neither nodule would likely be amenable to percutaneous tissue sampling. This can be further addressed by her oncologist. Patient will need to establish care with oncology as directed above. Recommendation is for the patient to establish care with pulmonology to further assess as well. Patient likely has GERD. She will continue with Protonix 40 mg 1 pill once daily. Patient has a history of asthma. Patient will continue with Spiriva 1 puff daily, Singulair 10 mg daily and albuterol 2 puffs 3 times a day as needed for shortness of breath. Recommendation for the patient follow up with pulmonology as an outpatient to further monitor and address. Patient has hyperlipidemia. Patient will continue with Zocor 20 mg 1 pill once daily. Vital Signs/Physical Exam: Temp Pulse Resp BP Pulse Ox 97.7 F 64 18 130/64 93 04/11/18 11:12 04/11/18 11:12 04/11/18 11:12 04/11/18 11:12 04/11/18 11:12 General: Alert, In no apparent distress, Oriented x3, Cooperative HEENT: Atraumatic Neck: Supple, No Thyromegaly Respiratory: Clear to auscultation bilaterally, Normal air movement Cardiovascular: Normal pulses, Regular rate/rhythm Gastrointestinal: Normal bowel sounds, Soft and benign, Non-distended, No tenderness, No masses, No rebound, No guarding Musculoskeletal: No erythema, No tenderness, No warmth Integumentary: No tenderness/swelling, No erythema, No warmth, No cyanosis Neurological: Normal speech, Normal strength at 5/5 x4 extr, Normal tone, Normal affect Laboratory Data at Discharge: WBC 10.6 K/uL (4.3-10.9) D 04/11/18 04:13 Hgb 13.0 g/dL (12.0-15.0) 04/11/18 04:13 Hct 37.9 % (36.0-45.0) 04/11/18 04:13 Plt Count 203 K/uL (152-406) 04/11/18 04:13 PT 11.4 SECONDS (9.5-12.5) 04/10/18 03:35 INR 0.97 04/10/18 03:35 Sodium 136 mmol/L (136-145) 04/11/18 04:13 Potassium 3.8 mmol/L (3.5-5.1) 04/11/18 04:13 BUN 14 mg/dL (7-18) 04/11/18 04:13 Creatinine 0.70 mg/dL (0.55-1.3) 04/11/18 04:13 Glucose 99 mg/dL (74-106) 04/11/18 04:13 Magnesium 2.1 mg/dL (1.8-2.4) 04/10/18 03:35 Total Bilirubin 0.3 mg/dL (0.2-1.0) 04/10/18 03:35 AST 18 U/L (15-37) 04/10/18 03:35 ALT 21 U/L (12-78) 04/10/18 03:35 Alkaline Phosphatase 83 U/L (45-117) 04/10/18 03:35 Troponin I 0.02 ng/mL (0.0-0.045) 04/10/18 17:30 Triglycerides 145 mg/dL (<150) 04/11/18 04:13 Cholesterol 145 mg/dL (<200) 04/11/18 04:13 HDL Cholesterol 51 mg/dL (40-60) 04/11/18 04:13 Cholesterol/HDL Ratio 2.84 04/11/18 04:13 Home Medications: Albuterol Sulfate [Proair Hfa] 2 puff IH Q6HP PRN 04/10/18 Montelukast Sodium 10 mg PO BEDTIME 04/10/18 Pantoprazole Granules [Protonix Granules*] 40 mg PO DAILY 04/10/18 Simvastatin 20 mg PO BEDTIME 04/10/18 Tiotropium Ava [Spiriva Respimat] 1.25 mg IH DAILY 04/10/18 Apixaban [Eliquis] 2.5 mg PO BID #60 tablet 04/11/18 Sotalol HCl [Betapace*] 80 mg PO BID 6AM 6PM #60 tab 04/11/18 New Medications: Apixaban [Eliquis] 2.5 mg PO BID #60 tablet Sotalol HCl [Betapace*] 80 mg PO BID 6AM 6PM #60 tab Patient Discharge Instructions: 1. Patient will need a follow up with PCP in 1 week to follow up this hospitalization. 2. Patient presented with chest pain. Patient was found to have atrial flutter and atrial fibrillation. Patient seen and evaluated by Cardiology. Medications were adjusted during her stay. Echocardiogram unremarkable. Cardiac Stress test showed no stress-induced ischemia. Patient was placed on new medication for atrial fibrillation. At discharge, Metoprolol and digoxin were discontinued. New medication include Betapace. Patient now in normal sinus rhythm. At discharge she will continue with Betapace 80 mg 1 pill twice daily. Patient will also continue with chronic anti coagulation therapy-Eliquis. Because of her age being greater than 78 years of age and her weight less than 60 kg, the patient will start Eliquis at 2.5 mg 1 pill twice daily. At discharge she will continue with Eliquis 2.5 mg 1 pill twice daily. Education on Eliquis and Betapace will be provided. Recommendations for the patient follow up with cardiology in 1 week to follow up this hospitalization and continue her care. 3. Patient has hypertension. Metoprolol has been discontinued. She will continue with above medications as recommended. 4. Patient has a history of breast cancer. Recommendation is for the patient to establish care locally with oncology to follow up. CT scan did show a smooth 14 mm noncalcified nodule to the left lower lobe and a spiculated 11 mm nodule in the right lower lobe. Both can represent either metastatic or primary cancer. Recommendation is for the patient to have a PET-CT scan as an outpatient to further assess. Based on size and location of the right based finding and the deep left nodule, neither nodule would likely be amenable to percutaneous tissue sampling. This can be further addressed by her oncologist. Patient will need to establish care with oncology as directed above. Recommendation is for the patient to establish care with pulmonology to further assess as well. 5. Patient likely has GERD. She will continue with Protonix 40 mg 1 pill once daily. 6. Patient has a history of asthma. Patient will continue with Spiriva 1 puff daily, Singulair 10 mg daily and albuterol 2 puffs 3 times a day as needed for shortness of breath. Recommendation for the patient follow up with pulmonology as an outpatient to further monitor and address. 7. Patient has hyperlipidemia. Patient will continue with Zocor 20 mg 1 pill once daily. Diet: AHA Activity: Fall precautions Time spent managing pt's care (in minutes): 55
--- NOTE | 2018-04-11 12:41 | ECHO ---
HEIGHT: 5 ft 3 in WEIGHT: 127 lb 0.133 oz DATE OF STUDY: 04/11/[address]: Randee Arndt MD 2-DIMENSIONAL: YES M.MODE: YES DOPPLER: YES COLOR FLOW: YES TDS: NO PORTABLE: NO DEFINITY: NO BUBBLE STUDY: NO DIAGNOSIS: ATRIAL FLUTTER CARDIAC HISTORY: CATHERIZATION: NO SURGERY: NO PROSTHETIC VALVE: NO PACEMAKER: NO MEASUREMENTS (cm) DIASTOLIC (NORMALS) SYSTOLIC (NORMALS) IVSd 1.1 (0.6-1.2) LA Diam 2.4 (1.9-4.0) LVEF 71% LVIDd 3.9 (3.5-5.7) LVIDs 2.3 (2.0-3.5) %FS 39% LVPWd 1.0 (0.6-1.2) Ao Diam 2.5 (2.0-3.7) 2 DIMENSIONAL ASSESSMENT: RIGHT ATRIUM: NORMAL LEFT ATRIUM: NORMAL RIGHT VENTRICLE: NORMAL LEFT VENTRICLE: NORMAL TRICUSPID VALVE: NORMAL MITRAL VALVE: NORMAL PULMONIC VALVE: NORMAL AORTIC VALVE: NORMAL PERICARDIAL EFFUSION: NONE AORTIC ROOT: NORMAL LEFT VENTRICULAR WALL MOTION: NORMAL. DOPPLER/COLOR FLOW: MILD AORTIC AND MITRAL REGURGITATION. COMMENTS: NORMAL LEFT VENTRICULAR EJECTION FRACTION. MILD AORTIC AND MITRAL REGURGITATION. SINUS RHYTHM. TECHNOLOGIST: HELIO BREWER
[2018-04-11 14:22] VITALS: O2SAT 94
== END 2018-04-11 13:49 | disposition home or self-care (01) ==
LOC: EDBD 03:20 → ER 03:20 → INTOOBSV 05:46 → ERHOLD 05:46 → 4TH 07:57 → INTOOBSV 15:05 → OBSVTOIN 15:05
PROVIDERS: ADMIT Internal Medicine; ATTEND Family Medicine
DX: I48.3 Typical atrial flutter (principal); J45.20 Mild intermittent asthma, uncomplicated; I25.10 Atherosclerotic heart disease of native coronary artery without angina pectoris; I48.91 Unspecified atrial fibrillation; I10 Essential (primary) hypertension; K21.9 Gastro-esophageal reflux disease without esophagitis; H91.90 Unspecified hearing loss, unspecified ear; Z85.3 Personal history of malignant neoplasm of breast; I49.3 Ventricular premature depolarization; R07.2 Precordial pain; E78.5 Hyperlipidemia, unspecified; R51 Headache; Z79.01 Long term (current) use of anticoagulants; Z88.2 Allergy status to sulfonamides; Z87.891 Personal history of nicotine dependence
CPT/HCPCS: 36415 ×2; 70450; 71045; 71250; 78452; 80048 ×2; 80061; 80076; 80162; 83735; 83880; 84145; 84443; 84484 ×3; 85025 ×2; 85379; 85610; 87086; 87088; 93005 ×2; 93017; 93306; 96374; 96375; 99285; A9500; G0378 ×2; J1160; J1650 ×3; J2785; J7605 ×2; 81003; 81015; 87077; 87186